=== PATIENT | male | born 1970 | race Caucasian/White ===

== ENCOUNTER 2021-10-13 13:44 | Emergency (ER) | payer OTHER ==
[2021-10-13] MEDS ORDERED: DIPHTH,PERTUSS(ACELL),TET 0.5 ML DISP.SYRIN IM ONE ×2 (14:13→14:17)
[2021-10-13 14:26] VITALS: BP 141/87; PULSE 74; TEMP 98.1; BMI 31.8
== END 2021-10-13 14:33 | disposition home or self-care (01) ==
LOC: FER 13:44
PROC: 3E0234Z Introduction of Serum, Toxoid and Vaccine into Muscle, Percutaneous Approach (ICD-10-PCS; principal; 2021-10-13)
DX: S61.011A Laceration without foreign body of right thumb without damage to nail, initial encounter (principal); W26.8XXA Contact with other sharp object(s), not elsewhere classified, initial encounter
CPT/HCPCS: 90715; 99284-25